=== PATIENT | male | born 1960 | race Caucasian/White ===

== ENCOUNTER 2024-02-20 12:46 | Emergency (ER) | payer OTHER ==
[2024-02-20 13:09] VITALS: BP 141/84; PULSE 81; RESP 16; TEMP 98.3; BMI 32.5
[2024-02-20 13:32] LABS: PH,URINE 5.5 (5.0-8.0); URINE APPEARANCE Clear; URINE BILIRUBIN Negative (NEGATIVE); URINE COLOR Yellow; URINE GLUCOSE (UA) Negative (NEGATIVE); URINE KETONE Negative (NEGATIVE); URINE LEUK ESTERASE Negative (NEGATIVE); URINE NITRITE Negative (NEGATIVE); URINE PROTEIN Trace (NEGATIVE); URINE UROBILINOGEN 0.2 mg/dL (0.2-1.0)
[2024-02-20] MEDS ORDERED: KETOROLAC TROMETHAMINE 15 MG/ML VIAL ONE ×2 (13:34→15:14)
[2024-02-20] MEDS ORDERED: ACETAMINOPHEN 500 MG TABLET (FP) ONE (13:34)
[2024-02-20] MEDS: ACETAMINOPHEN 500 MG TABLET (FP) PO ONE (13:43)
[2024-02-20 13:49] LABS: EOS % 1.1 % (0-4.5); HEMATOCRIT 44.3 % (35.4-49); LYMPH % 29.7 % (8-40); MCH 28.3 pg (25.7-33.7); MCHC 33.7 g/dl (32.0-35.9); MEAN PLT VOLUME 8.9 fl (7.5-11.1); MONO % 7.7 % (3.8-10.2); NEUT % 60.5 % (42.8-82.8); PLATELET COUNT 262 10^3/uL (134-434); RBC 5.28 M/mm3 (4.00-5.60); RDW 14.1 % (11.9-15.9)
[2024-02-20 14:50] LABS: CALCIUM 9.8 mg/dL (8.5-10.1)
[2024-02-20 14:51] LABS: ALBUMIN 3.8 g/dl (3.4-5.0); BLOOD UREA NITROGEN 19.2 mg/dL (7-18)
[2024-02-20 14:55] LABS: BILIRUBIN,TOTAL 0.3 mg/dL (0.2-1); TOT PROT 7.4 g/dl (6.4-8.2)
[2024-02-20] MEDS: KETOROLAC TROMETHAMINE 15 MG/ML VIAL IVPUSH ONE (15:18)
== END 2024-02-20 15:32 | disposition home or self-care (01) ==
LOC: JER 12:46
PROC: 3E0333Z Introduction of Anti-inflammatory into Peripheral Vein, Percutaneous Approach (ICD-10-PCS; principal; 2024-02-20)
DX: R10.32 Left lower quadrant pain (principal); M54.9 Dorsalgia, unspecified
CPT/HCPCS: 36415; 80053; 81003; 85025; 87086; 99284-25

== ENCOUNTER 2025-07-27 08:21 | Emergency (ER) | payer OTHER ==
[2025-07-27 08:36] VITALS: BP 163/92; PULSE 102; RESP 18; TEMP 98.2; BMI 31.2
[2025-07-27 09:28] LABS: ABSOLUTE IMMATURE GRANULOCYTES 0.02 x10^3/uL (0.0-0.031); BASOPHILS # 0.07 x10^3/uL (0.01-0.08); EOSINOPHIL % 1.3 % (0.8-7.0); EOSINOPHILS # 0.09 x10^3/uL (0.04-0.54); MCHC 33.1 g/dl (32.3-36.5); MEAN CELL VOLUME 84.4 fl (79.0-92.2); MEAN PLT VOLUME 10.7 fl (9.4-12.4); MONOCYTE # 0.70 x10^3/uL (0.30-0.82); MONOCYTE % 9.9 % (5.3-12.2); RDW 13.4 % (12.2-16.4)
[2025-07-27] MEDS: DIPHTH,PERTUSS(ACELL),TET 0.5 ML DISP.SYRIN IM ONE (09:28)
[2025-07-27] MEDS: HIV POST EXPOSURE PROPHYLAXIS KIT PO ONE (09:28)
[2025-07-27 09:50] LABS: GLUCOSE,RANDOM 99.0 mg/dL (74-106); TOT PROT 7.8 g/dl (6.4-8.2)
[2025-07-27 09:51] LABS: CO2 23.0 mmol/L (21-32)
[2025-07-27 09:52] LABS: ALK PHOS 95.0 U/L (40-150)
[2025-07-27 09:55] LABS: SGOT/AST 32.0 U/L (5-34); SGPT/ALT 41.0 U/L (0-55)
[2025-07-27 09:56] LABS: CREATININE 0.83 mg/dL (0.55-1.3)
[2025-07-27 10:57] LABS: HCV DIAGNOSTIC IN-HOUSE W/RFLX NON-REACTIVE (NONREACTIVE); HEPATITIS B SURF AG NON-MATERN NON-REACTIVE (NONREACTIVE); HIV INTERPRETATION NEGATIVE (NEGATIVE)
== END 2025-07-27 09:57 | disposition home or self-care (01) ==
LOC: JER 08:21 → JERFT 08:21
PROC: 3E0234Z Introduction of Serum, Toxoid and Vaccine into Muscle, Percutaneous Approach (ICD-10-PCS; principal; 2025-07-27)
DX: S81.832A Puncture wound without foreign body, left lower leg, initial encounter (principal); W26.8XXA Contact with other sharp object(s), not elsewhere classified, initial encounter; Z23 Encounter for immunization
CPT/HCPCS: 36415; 80053; 85025; 86704; 86803; 87340; 87389; 87517; 90715; 99284-25